=== PATIENT | male | born 1945 | race Caucasian/White ===

== ENCOUNTER → 2016-12-21 | Outpatient (CLI) | payer OTHER ==
[~2016-12-21] MED LIST: ATENOLOL100 MG PO; ELIQUIS5 MG PO; FLOMAX0.4 MG PO; MIRALAX17 GM PO; NORCO 10-325 T1 EACH PO; PERCOCET 10-321 EACH PO; PROTONIX 40 MG40 M1 PO; TENORMIN 25 MG25 MG PO; ZYRTEC10 M2 PO
== END ==
LOC: OPSV2 11:21 → EDSTATUS 12:30
DX: Z01.810 Encounter for preprocedural cardiovascular examination (principal); Z01.812 Encounter for preprocedural laboratory examination; M19.012 Primary osteoarthritis, left shoulder
CPT/HCPCS: 81001; 87081; 93005

== ENCOUNTER → 2016-12-28 | Outpatient (CLI) | payer OTHER | LOC: LAB 11:42 | DX: Z01.812 Encounter for preprocedural laboratory examination (principal); M19.90 Unspecified osteoarthritis, unspecified site; I10 Essential (primary) hypertension | CPT/HCPCS: 36415; 80051; 82565; 84520; 86850; 86900; 86901 ==

== ENCOUNTER 2016-12-29 05:52 | Inpatient (IN) | payer OTHER ==
[~2016-12-29] VITALS: Ht 190.5 cm; Wt 110.7 kg
[2016-12-29] MEDS ORDERED: ATENOLOL100 MG PO (06:40)
[2016-12-29] MEDS ORDERED: FLOMAX0.4 MG PO (06:40)
[2016-12-29] MEDS ORDERED: ZYRTEC10 M2 PO (06:41)
[2016-12-29] MEDS ORDERED: PROTONIX 40 MG40 M1 PO (06:41)
[2016-12-29] MEDS ORDERED: NORCO 10-325 T1 EACH PO (06:42)
[2016-12-29] MEDS ORDERED: MIRALAX17 GM PO (06:42)
[2016-12-29] MEDS ORDERED: ELIQUIS5 MG PO (17:18)
[2016-12-30 05:43] LABS: HEMOGLOBIN 12.4 gm/dl (14.0-17.5); RED BLOOD COUNT 3.88 M/UL (4.20-5.50); WHITE BLOOD COUNT 7.4 K/UL (4.5-11.0)
[2016-12-30 05:55] LABS: BUN/CREATININE RATIO 13 (0-10)
[2016-12-31 06:03] LABS: HEMOGLOBIN 12.1 gm/dl (14.0-17.5); RED BLOOD COUNT 3.87 M/UL (4.20-5.50); WHITE BLOOD COUNT 6.3 K/UL (4.5-11.0)
[2016-12-31 06:23] LABS: BUN/CREATININE RATIO 13 (0-10)
[2016-12-31] MEDS ORDERED: TENORMIN 25 MG25 MG PO (16:30)
[2016-12-31] MEDS ORDERED: PERCOCET 10-321 EACH PO (16:37)
== END 2016-12-31 17:52 | disposition home or self-care (01) | DRG 483 ==
LOC: ZOBSOF 05:52 → EDSTATUS 08:15 → OR 08:15 → M/S 16:30
PROVIDERS: ADMIT Orthopaedic Surgery
PROC: 0RRK00Z Replacement of Left Shoulder Joint with Reverse Ball and Socket Synthetic Substitute, Open Approach (ICD-10-PCS; principal; 2016-12-29 08:15)
DX: M19.012 Primary osteoarthritis, left shoulder (principal); I10 Essential (primary) hypertension; K21.9 Gastro-esophageal reflux disease without esophagitis; G47.30 Sleep apnea, unspecified; K59.00 Constipation, unspecified; R00.1 Bradycardia, unspecified; N40.1 Benign prostatic hyperplasia with lower urinary tract symptoms; R33.8 Other retention of urine; Z85.828 Personal history of other malignant neoplasm of skin; Z79.899 Other long term (current) drug therapy; Z96.642 Presence of left artificial hip joint
CPT/HCPCS: 36415; 73030; 80048; 84439; 84443; 85027; 94660; C1776; J0690; J1650; J2250; J2270; J2710; J3010; J7120

== ENCOUNTER → 2021-01-21 | Outpatient (CLI) | payer MEDICARE | LOC: RAD 08:50 | PROC: BW1J1ZZ Fluoroscopy of Upper Extremity using Low Osmolar Contrast (ICD-10-PCS; principal; 2021-01-21) | PROC: BP291ZZ Computerized Tomography (CT Scan) of Left Shoulder using Low Osmolar Contrast (ICD-10-PCS; 2021-01-21) | DX: T84.84XA Pain due to internal orthopedic prosthetic devices, implants and grafts, initial encounter (principal); Z96.612 Presence of left artificial shoulder joint; Z88.5 Allergy status to narcotic agent; Y83.1 Surgical operation with implant of artificial internal device as the cause of abnormal reaction of the patient, or of later complication, without mention of misadventure at the time of the procedure | CPT/HCPCS: 73040; 73201; Q9967 ==